=== PATIENT | female | born 1950 | race Caucasian/White ===

== ENCOUNTER 2021-01-26 15:35 | Inpatient (IN) | payer MEDICARE, OTHER ==
[~2021-01-26] VITALS: Ht 162.6 cm; Wt 75.4 kg
[~2021-01-26 15:35] MED LIST: ALENDRONATE SOD70 MG PO; ALLEGRA ALLERG180 MG PO; FAMOTIDINE40 MG PO; GLIPIZIDE5 MG PO; HCTZ25 MG PO; LIPITOR80 MG PO; LOPRESSOR50 MG PO; NITROQUIK SL0.4 MG SL; NORVASC5 MG PO; OMEGA 3 1,0001 EACH PO; PLAQUENIL200 MG PO; PRILOSEC20 MG PO; TOPROL XL 50 MG50 MG PO; ULTRAM50 MG PO
[2021-01-26 16:45] LABS: BASOPHIL 0.1 % (0-2); EOSINOPHIL 0.6 % (0-7); HCT 30.7 % (37.0-47.0); LYMPHOCYTE 15.4 % (15-48); MCH 25.9 pg (25.0-31.0); MCHC 29.3 g/dL (32.0-36.0); MCV 88.5 fL (78.0-100.0); MONOCYTE 10.5 % (0-12); MPV 10.4 fL (6.0-9.5); NEUTROPHIL 72.4 % (41-80); NRBC 0; PLT 380 K/uL (150-400); RBC 3.47 M/uL (4.20-5.40); RDW 18.1 % (11.5-14.0); WBC 11.6 K/uL (4.0-10.5)
[2021-01-26 16:54] LABS: CREATININE 2.26 mg/dL (0.51-0.95); POTASSIUM 4.6 mmol/L (3.5-5.1)
[2021-01-26 17:59] LABS: BILIRUBIN NEGATIVE (NEGATIVE); BLOOD 3+ Ery/uL (NEGATIVE); CLARITY CLOUDY (CLEAR); COLOR YELLOW (YELLOW); GLUCOSE (U) NORMAL (NORMAL); LEUKOCYTES 2+ Leu/uL (NEGATIVE); NITRITE NEGATIVE (NEGATIVE); PROTEIN 2+ mg/dL (NEGATIVE); SPECIFIC GRAVITY 1.015 (1.001-1.030); UROBILINOGEN 0.2 mg/dL (0.2-1.0); pH 7.5 (5.0-9.0)
[2021-01-26 18:08] LABS: AMORPHOUS URATES CRYSTALS LARGE; BACTERIA 3+; URINARY RBC TNTC; URINARY WBC TNTC
[2021-01-26 19:11] LABS: CORONAVIRUS 2019 SARS-COV-2 NEGATIVE (NEGATIVE); INFLUENZA A NAA NEGATIVE (NEGATIVE)
--- NOTE | 2021-01-26 21:49 | NUR ---
TYRONE CHAMBERS APRN NOTIFIED OF PATIENT'S REFUSAL OF HEPARIN. NO NEW ORDERS AT THIS TIME.
[2021-01-27 06:27] LABS: BASOPHIL 0.1 % (0-2); EOSINOPHIL 0.5 % (0-7); HCT 29.3 % (37.0-47.0); HGB 8.7 g/dl (12.5-16.0); MCH 26.4 pg (25.0-31.0); MCHC 29.7 g/dL (32.0-36.0); MCV 89.1 fL (78.0-100.0); MONOCYTE 11.4 % (0-12); MPV 10.3 fL (6.0-9.5); NEUTROPHIL 73.1 % (41-80); NRBC 0; PLT 340 K/uL (150-400); RBC 3.29 M/uL (4.20-5.40); RDW 18.1 % (11.5-14.0); WBC 10.6 K/uL (4.0-10.5)
[2021-01-27 06:56] LABS: ALBUMIN 2.9 g/dL (3.4-5.0); BILIRUBIN - TOTAL 0.2 mg/dL (0.2-1.0); BUN/CREAT RATIO (CALC) 39.6 RATIO; CREATININE 1.92 mg/dL (0.51-0.95); GLOBULIN (CALCULATION) 4.1 g/dL; POTASSIUM 4.1 mmol/L (3.5-5.1)
[2021-01-27 09:04] LABS: RETICULOCYTE COUNT 3.4 % (1.0-2.0)
[2021-01-27 09:19] LABS: IRON % SATURATION 4.7 %SAT (20-50)
[2021-01-27 10:37] LABS: FOLIC ACID (SERUM) 5.6 ng/mL (8.6-58.9)
[2021-01-28 05:50] LABS: BASOPHIL 0.2 % (0-2); HCT 26.2 % (37.0-47.0); HGB 7.6 g/dl (12.5-16.0); LYMPHOCYTE 21.9 % (15-48); MCH 26.2 pg (25.0-31.0); MCV 90.3 fL (78.0-100.0); MONOCYTE 13.5 % (0-12); NRBC 0; PLT 289 K/uL (150-400); RDW 18.4 % (11.5-14.0); WBC 9.6 K/uL (4.0-10.5)
[2021-01-28 06:19] LABS: BUN/CREAT RATIO (CALC) 35.2 RATIO; CREATININE 1.76 mg/dL (0.51-0.95); MAGNESIUM 1.9 mg/dL (1.8-2.4); PHOSPHORUS 3.3 mg/dL (2.6-4.7); POTASSIUM 3.6 mmol/L (3.5-5.1)
[2021-01-29 05:56] LABS: BASOPHIL 0.4 % (0-2); EOSINOPHIL 1.8 % (0-7); HCT 26.5 % (37.0-47.0); HGB 7.9 g/dl (12.5-16.0); LYMPHOCYTE 15.4 % (15-48); MCH 26.4 pg (25.0-31.0); MCHC 29.8 g/dL (32.0-36.0); MCV 88.6 fL (78.0-100.0); MONOCYTE 11.7 % (0-12); MPV 10.3 fL (6.0-9.5); NEUTROPHIL 69.4 % (41-80); NRBC 0; PLT 281 K/uL (150-400); RBC 2.99 M/uL (4.20-5.40); RDW 18.7 % (11.5-14.0); WBC 11.2 K/uL (4.0-10.5)
[2021-01-29 06:08] LABS: BUN/CREAT RATIO (CALC) 30.1 RATIO; CREATININE 1.63 mg/dL (0.51-0.95); MAGNESIUM 1.6 mg/dL (1.8-2.4); POTASSIUM 3.8 mmol/L (3.5-5.1)
--- NOTE | 2021-01-29 21:49 | NUR ---
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 NO NEW ORDERS
[2021-01-30 04:45] LABS: BASOPHIL 0.2 % (0-2); EOSINOPHIL 1.7 % (0-7); HCT 24.6 % (37.0-47.0); HGB 7.3 g/dl (12.5-16.0); LYMPHOCYTE 8.6 % (15-48); MCH 26.4 pg (25.0-31.0); MCHC 29.7 g/dL (32.0-36.0); MCV 88.8 fL (78.0-100.0); MONOCYTE 8.4 % (0-12); MPV 10.3 fL (6.0-9.5); NRBC 0; PLT 274 K/uL (150-400); RBC 2.77 M/uL (4.20-5.40)
[2021-01-30 05:06] LABS: BUN/CREAT RATIO (CALC) 24.8 RATIO; CREATININE 1.61 mg/dL (0.51-0.95); POTASSIUM 3.3 mmol/L (3.5-5.1)
[2021-01-31 06:22] LABS: BASOPHIL 0.3 % (0-2); EOSINOPHIL 2.6 % (0-7); HCT 23.2 % (37.0-47.0); HGB 6.7 g/dl (12.5-16.0); LYMPHOCYTE 18.1 % (15-48); MCH 26.3 pg (25.0-31.0); MCHC 28.9 g/dL (32.0-36.0); MONOCYTE 12.1 % (0-12); MPV 10.8 fL (6.0-9.5); NEUTROPHIL 64.3 % (41-80); NRBC 0; PLT 263 K/uL (150-400); RBC 2.55 M/uL (4.20-5.40); RDW 19.8 % (11.5-14.0); WBC 10.6 K/uL (4.0-10.5)
[2021-01-31 06:52] LABS: BUN/CREAT RATIO (CALC) 18.5 RATIO; CREATININE 1.73 mg/dL (0.51-0.95); POTASSIUM 3.6 mmol/L (3.5-5.1)
--- NOTE | 2021-01-31 09:18 | NUR ---
PATIENT EXPLAINED TO ABOUT HGB BEING 6.7 NEEDING BLOOD AND WHY AND THE DANGERS OF LOW HGB AND BENEFITS OF GETTING BLOOD, SHE STATED SHE WASN'T TAKING BLOOD. WALKED INTO THE ROOM AND SPOKE WITH HIM ABOUT IT AND HE STATED IT WAS UP TO HER HE WASN'T MAKING HER DO ANYTHING
--- NOTE | 2021-01-31 12:38 | NUR ---
MET WITH PT. SHE ADVISED THAT SHE HAS A ROLLING WALKER, WHEELCHAIR, SHOWERCHAIR. PT. IS CURRENT WITH [employer] . PT. RESIDES WITH HER SPOUSE.
--- NOTE | 2021-01-31 18:13 | NUR ---
PATIENT CONTINUES TO REFUSE BLOOD, MD KEPT INFORMED, ALSO INFORMED TODAY OF LABS AND IRON, AND TIBC
[2021-02-01 06:03] LABS: BASOPHIL 0.3 % (0-2); EOSINOPHIL 2.5 % (0-7); HCT 24.4 % (37.0-47.0); HGB 7.2 g/dl (12.5-16.0); LYMPHOCYTE 15.7 % (15-48); MCH 26.8 pg (25.0-31.0); MCHC 29.5 g/dL (32.0-36.0); MCV 90.7 fL (78.0-100.0); MPV 10.6 fL (6.0-9.5); NEUTROPHIL 68.3 % (41-80); NRBC 0; PLT 279 K/uL (150-400); RBC 2.69 M/uL (4.20-5.40); RDW 20.2 % (11.5-14.0); WBC 11.8 K/uL (4.0-10.5)
[2021-02-01 06:04] LABS: CREATININE 1.67 mg/dL (0.51-0.95); POTASSIUM 3.2 mmol/L (3.5-5.1)
--- NOTE | 2021-02-01 13:38 | NUR ---
NOTIFIED FABIEN PARIS FOR INTREPID, THAT PT. MAY DC HOME ON 02/02/21.
[2021-02-02 06:37] LABS: BASOPHIL 0.3 % (0-2); EOSINOPHIL 2.8 % (0-7); HCT 24.7 % (37.0-47.0); HGB 7.3 g/dl (12.5-16.0); LYMPHOCYTE 20.2 % (15-48); MCHC 29.6 g/dL (32.0-36.0); MCV 91.5 fL (78.0-100.0); MONOCYTE 10.6 % (0-12); MPV 10.7 fL (6.0-9.5); NEUTROPHIL 64.2 % (41-80); NRBC 0; PLT 285 K/uL (150-400); RDW 21.1 % (11.5-14.0); WBC 9.6 K/uL (4.0-10.5)
[2021-02-02 07:11] LABS: CREATININE 1.54 mg/dL (0.51-0.95); POTASSIUM 3.3 mmol/L (3.5-5.1)
[2021-02-02] MEDS ORDERED: LEVAQUIN250 MG PO (13:18)
[2021-02-02] MEDS ORDERED: SODIUM BICARBO650 M1 PO (13:18)
[2021-02-02] MEDS ORDERED: FEOSOL325 MG PO (13:18)
--- NOTE | 2021-02-02 14:22 | NUR ---
[facility]
== END 2021-02-02 14:22 | disposition home or self-care (01) | DRG 682 ==
LOC: FER 15:35 → FMS 17:40
PROVIDERS: Internal Medicine; Nurse Practitioner; Nurse Practitioner Family; ADMIT Internal Medicine
DX: N17.9 Acute kidney failure, unspecified (principal); G93.41 Metabolic encephalopathy; N30.01 Acute cystitis with hematuria; E87.2 Acidosis; E86.0 Dehydration; J44.9 Chronic obstructive pulmonary disease, unspecified; I25.10 Atherosclerotic heart disease of native coronary artery without angina pectoris; E86.1 Hypovolemia; K57.30 Diverticulosis of large intestine without perforation or abscess without bleeding; E11.22 Type 2 diabetes mellitus with diabetic chronic kidney disease; N18.30 Chronic kidney disease, stage 3 unspecified; Z20.822 Contact with and (suspected) exposure to COVID-19; I12.9 Hypertensive chronic kidney disease with stage 1 through stage 4 chronic kidney disease, or unspecified chronic kidney disease; D50.9 Iron deficiency anemia, unspecified; M06.9 Rheumatoid arthritis, unspecified; B96.5 Pseudomonas (aeruginosa) (mallei) (pseudomallei) as the cause of diseases classified elsewhere; G47.33 Obstructive sleep apnea (adult) (pediatric); Z85.51 Personal history of malignant neoplasm of bladder; Z85.830 Personal history of malignant neoplasm of bone; Z90.6 Acquired absence of other parts of urinary tract; Z98.890 Other specified postprocedural states; Z88.6 Allergy status to analgesic agent; Z88.8 Allergy status to other drugs, medicaments and biological substances; Z87.891 Personal history of nicotine dependence; Z90.710 Acquired absence of both cervix and uterus; Z99.81 Dependence on supplemental oxygen; Z95.5 Presence of coronary angioplasty implant and graft; Z93.6 Other artificial openings of urinary tract status
CPT/HCPCS: 36415; 70450; 80048; 80053; 81001; 82607; 82746; 82962; 83540; 83550; 83605; 83735; 84100; 85025; 86850; 86900; 86901; 86922; 87076; 87088; 87186; 94010; 94760; 94762; 97110; 97116; 97161; 97166; 97530; 97535; 99285; J0696; J1644; J2020; J2543; J2916; J7030; U0002